=== PATIENT | male | born 1990 | race Two or more races ===

== ENCOUNTER 2022-08-13 17:32 | Emergency (ER) | payer MEDICAID, OTHER ==
--- NOTE | 2022-08-13 17:55 | NUR ---
CALLED TO TRIAGE,NO ANSWER
--- NOTE | 2022-08-13 18:10 | NUR ---
CALLED TO TRIAGE,NO ANSWER
--- NOTE | 2022-08-13 18:43 | NUR ---
called for triage, no answer.
== END 2022-08-13 18:49 | disposition left against medical advice (07) ==
LOC: ER 17:39
DX: Z53.21 Procedure and treatment not carried out due to patient leaving prior to being seen by health care provider (principal)

== ENCOUNTER → 2024-03-23 | Emergency (ER) | payer MEDICAID, OTHER ==
[~2024-03-23] VITALS: Ht 180.3 cm; Wt 95.3 kg
[~2024-03-23] MED LIST: ACET-2605 PO; IBUP-1957 PO; KETOROLAC TROMETHAMINE 15 MG/ML VIAL ONE; SULF1TAB48 PO; TDAP [DIPH/PERTUSSIS/TET] 0.5 ML VIAL IM ONE
[2024-03-23] MEDS: TDAP [DIPH/PERTUSSIS/TET] 0.5 ML VIAL IM ONE (16:41)
[2024-03-23] MEDS: KETOROLAC TROMETHAMINE 15 MG/ML VIAL IM ONE (16:44)
[2024-03-23 18:23] VITALS: BP 122/72; TEMP 97.9; O2SAT 98
== END | disposition home or self-care (01) ==
LOC: ER 14:42
DX: S61.432A Puncture wound without foreign body of left hand, initial encounter (principal); F41.9 Anxiety disorder, unspecified; Z87.19 Personal history of other diseases of the digestive system; F19.10 Other psychoactive substance abuse, uncomplicated; F10.10 Alcohol abuse, uncomplicated; F17.200 Nicotine dependence, unspecified, uncomplicated; W26.0XXA Contact with knife, initial encounter; Y93.89 Activity, other specified; Y92.89 Other specified places as the place of occurrence of the external cause; Y99.8 Other external cause status; Y90.9 Presence of alcohol in blood, level not specified
CPT/HCPCS: 99284; 96372; 90471; 90715; 73130; J1885